=== PATIENT | male | born 2005 | race African-American/Black ===

== ENCOUNTER 2025-04-28 18:01 | Emergency (ER) | payer OTHER ==
[~2025-04-28] VITALS: Ht 177.8 cm; Wt 72.6 kg
[2025-04-28 18:17] VITALS: O2SAT 97
[2025-04-28] MEDS: ACETAMINOPHEN 325MG TABLET PO ONE (19:58)
[2025-04-28] MEDS: ONDANSETRON 4MG ODT PO ONE (20:00)
[2025-04-28 21:04] VITALS: BP 134/70; PULSE 102; RESP 20; TEMP 36.8; O2SAT 100
== END 2025-04-28 21:03 ==
LOC: ER 18:04
DX: S60.414A Abrasion of right ring finger, initial encounter (principal); S60.416A Abrasion of right little finger, initial encounter; S80.211A Abrasion, right knee, initial encounter; R11.2 Nausea with vomiting, unspecified; Z79.899 Other long term (current) drug therapy; X58.XXXA Exposure to other specified factors, initial encounter; Y93.9 Activity, unspecified; Y92.89 Other specified places as the place of occurrence of the external cause; Y99.8 Other external cause status
CPT/HCPCS: 99284; 71045; 73130; 73562; Q0162